=== PATIENT | female | born 1950 | race Caucasian/White ===

== ENCOUNTER → 2016-12-09 | Outpatient (REF) | payer MEDICARE, BC, OTHER | LOC: M LAB REF 09:43 | PROVIDERS: ATTEND Ophthalmology | DX: H02.834 Dermatochalasis of left upper eyelid (principal); H02.831 Dermatochalasis of right upper eyelid ==

== ENCOUNTER → 2018-01-05 | Outpatient (REF) | payer MEDICARE, OTHER | LOC: M LABDRAW1 11:01 | DX: E04.2 Nontoxic multinodular goiter (principal) | CPT/HCPCS: 88173 ==